=== PATIENT | male | born 1970 | race Caucasian/White ===

== ENCOUNTER 2020-12-26 13:00 | Emergency (ER) | payer SELFPAY ==
[2020-12-26] MEDS ORDERED: NAPROXEN500 MG PO (15:07)
== END 2020-12-26 16:18 | disposition home or self-care (01) ==
LOC: FER 13:00
DX: S86.812A Strain of other muscle(s) and tendon(s) at lower leg level, left leg, initial encounter (principal); W22.8XXA Striking against or struck by other objects, initial encounter; Y93.01 Activity, walking, marching and hiking; Y92.480 Sidewalk as the place of occurrence of the external cause; Y99.0 Civilian activity done for income or pay
CPT/HCPCS: 99283